=== PATIENT | female | born 2000 | race Two or more races ===

== ENCOUNTER 2025-05-05 13:05 | Outpatient (CLI) | payer OTHER | END 2025-05-05 13:12 | disposition home or self-care (01) | LOC: PRENATAL 13:05 | PROVIDERS: ATTEND Obstetrics & Gynecology Maternal & Fetal Medicine | DX: O44.00 Complete placenta previa NOS or without hemorrhage, unspecified trimester (principal); O28.1 Abnormal biochemical finding on antenatal screening of mother; O43.90 Unspecified placental disorder, unspecified trimester; Z3A.20 20 weeks gestation of pregnancy ==

== ENCOUNTER → 2025-07-08 13:09 | Outpatient (CLI) | payer OTHER | END | disposition home or self-care (01) | LOC: PRENATAL 13:09 | PROVIDERS: ATTEND Obstetrics & Gynecology Maternal & Fetal Medicine | DX: O26.849 Uterine size-date discrepancy, unspecified trimester (principal); O36.8130 Decreased fetal movements, third trimester, not applicable or unspecified; O28.1 Abnormal biochemical finding on antenatal screening of mother; O43.90 Unspecified placental disorder, unspecified trimester; Z3A.29 29 weeks gestation of pregnancy ==

== ENCOUNTER 2025-08-13 07:55 | Outpatient (CLI) | payer OTHER | END 2025-08-13 07:56 | disposition home or self-care (01) | LOC: PRENATAL 07:55 | PROVIDERS: ATTEND Obstetrics & Gynecology Maternal & Fetal Medicine | DX: O26.843 Uterine size-date discrepancy, third trimester (principal); O36.8130 Decreased fetal movements, third trimester, not applicable or unspecified; O28.1 Abnormal biochemical finding on antenatal screening of mother; O43.93 Unspecified placental disorder, third trimester; Z3A.34 34 weeks gestation of pregnancy ==